=== PATIENT | male | born 1955 | race African-American/Black ===

== ENCOUNTER 2017-01-18 13:36 | Inpatient (IN) | payer OTHER ==
[2017-01-18 16:46] VITALS: BMI 21.4
--- NOTE | 2017-01-18 17:26 | HP ---
Admission ROS [facility] Chief Complaint: I need rehab to stop using heroin in order to continue OTP. Pt. denies cocaine use even though the UDS is + for cocaine. It was probably put in the heroin. Allergies/Adverse Reactions: Allergies Allergy/AdvReac Type Severity Reaction Status Date / Time Fish Containing Products Allergy Severe Hives Verified 01/18/17 16:42 History of Present Illness: 61 y/o man with a long hx. of cocaine dependence is admitted to rehab. Pt. is currently attending OTP and receives methadone 70mg daily. Exam Limitations: No Limitations - Ebola screening Have you traveled outside of the country in the last 21 days: No Have you had contact with anyone from an Ebola affected area: No Have you been sick,other than usual withdrawal symptoms: No Do you have a fever: No - Review of Systems Constitutional: No Symptoms Reported EENT: reports: No Symptoms Reported Respiratory: reports: No Symptoms reported Cardiac: reports: No Symptoms Reported GI: reports: No Symptoms Reported : reports: No Symptoms Reported Musculoskeletal: reports: No Symptoms Reported Integumentary: reports: No Symptoms Reported Neuro: reports: Seizure (last one in 2009) Endocrine: reports: No Symptoms Reported Hematology: reports: No Symptoms Reported Psychiatric: reports: No Sypmtoms Reported Other Systems: Reviewed and Negative Patient History - Patient Medical History Hx Anemia: No Hx Asthma: Yes (albuterol) Hx Chronic Obstructive Pulmonary Disease (COPD): No Hx Cancer: No Hx Cardiac Disorders: No Hx Congestive Heart Failure: No Hx Hypertension: No Hx Hypercholesterolemia: No Hx Pacemaker: No HX Cerebrovascular Accident: No Hx Seizures: Yes (last in 2009) Hx Dementia: No Hx Diabetes: No Hx Gastrointestinal Disorders: No Hx Liver Disease: No Hx Genitourinary Disorders: No Hx Sexually Transmitted Disorders: No Hx Renal Disease (ESRD): No Hx Thyroid Disease: No Hx Human Immunodeficiency Virus (HIV): No Hx Hepatitis C: No Hx Depression: Yes (no meds) Hx Suicide Attempt: No Hx Bipolar Disorder: Yes Hx Schizophrenia: No - Patient Surgical History Past Surgical History: No - PPD History Previous Implant?: Yes Documented Results: Negative w/o proof Implanted On Prior [facility] Admission?: No PPD to be Administered?: Yes - Smoking Cessation Smoking history: Current every day smoker Aproximately how many cigarettes per day: 2 Hx Chewing Tobacco Use: No Initiated information on smoking cessation: Yes 'Breaking Loose' booklet given: 01/18/17 - Substance & Tx. History Hx Alcohol Use: No Hx Substance Use: Yes Substance Use Type: Cocaine Hx Substance Use Treatment: Yes (OTP) - Substances Abused Heroin Route: Inhalation Frequency: Daily Age of first use: 18 Date of Last Use: 01/18/17 Family Disease History - Family Disease History Family Disease History: [place]: Brother, Other: Father (Alcohol & drug), Mother ( Alcohol & drug) Admission Physical Exam [facility] - Vital Signs Vital Signs: Vital Signs - 24 hr 01/18/17 16:42 Temperature 97.3 F L Pulse Rate 74 Respiratory 18 Rate Blood Pressure 102/63 - Physical General Appearance: Yes: Within Normal Limits HEENTM: Yes: Within Normal Limits Respiratory: Yes: Chest Non-Tender, Lungs Clear, Normal Breath Sounds Neck: Yes: Supple Breast: Yes: Breast Exam Deferred Cardiology: Yes: Regular Rhythm, Regular Rate, S1, S2 Abdominal: Yes: Normal Bowel Sounds, Non Tender, Flat, Soft Genitourinary: Yes: Within Normal Limits Back: Yes: Within Normal Limits Musculoskeletal: Yes: Within Normal Limits Extremities: Yes: Within Normal Limits Neurological: Yes: Fully Oriented, Alert Integumentary: Yes: Within Normal Limits Lymphatic: Yes: Within Normal Limits - Diagnostic (1) Uncomplicated opioid dependence Current Visit: Yes Status: Acute (2) Opioid dependence on agonist therapy Current Visit: Yes Status: Acute Cleared for Admission [facility] - Detox or Rehab Claeared for Rehab Admission: Yes [facility] Breath Alcohol Content Breath Alcohol Content: 0 Urine Drug Screen - Results Drug Screen Negative: No Urine Drug Screen Results: KELLY-Cocaine, OPI-Opiates, MTD-Methadone, TCA- Tricyclic Antidepress
[2017-01-18] MEDS ORDERED: MAGNESIUM CITRATE 300 ML BOTTLE PO PRN (17:38)
[2017-01-18] MEDS ORDERED: MAG HYDROX/AL HYDROX/SIMETH 30 ML UNIT-DOSE CUP PO PRN (17:38)
[2017-01-18] MEDS ORDERED: NICOTINE POLACRILEX 2 MG GUM BUC PRN (17:38)
[2017-01-18] MEDS ORDERED: LOPERAMIDE HCL 2 MG CAPSULE PO PRN (17:38)
[2017-01-18] MEDS ORDERED: IBUPROFEN 400 MG TABLET (FP) PO PRN (17:38)
[2017-01-18] MEDS ORDERED: guaiFENesin/D-METHORPHAN HB 10 ML UNIT-DOSE CUPS PO PRN (17:38)
[2017-01-18] MEDS ORDERED: P-EPHED 60MG/TRIPROLIDI 2.5MG TABLET PO PRN (17:38)
[2017-01-18] MEDS ORDERED: MAGNESIUM HYDROX 2400MG/30ML ORAL SUSPENSION 30 ML CUP PO PRN (17:38)
[2017-01-18] MEDS ORDERED: MENTHOL/PHENOL 1 EACH UD MM PRN (17:38)
[2017-01-18] MEDS ORDERED: ACETAMINOPHEN 325 MG TABLET (FP) PO PRN (17:38)
[2017-01-18] MEDS ORDERED: ALBUTEROL SO4 6.7 GM HFA INHALER IH PRN (17:40)
[2017-01-18] MEDS: THIAMINE HCL 100 MG TABLET (FP) PO SCH (21:23)
[2017-01-18] MEDS ORDERED: diphenhydrAMINE HCL 50 MG CAPSULE PO PRN (22:00)
[2017-01-18 23:27] LABS: URINE APPEARANCE CLEAR; URINE BILIRUBIN NEGATIVE (NEGATIVE); URINE BLOOD NEGATIVE (NEGATIVE); URINE COLOR YELLOW; URINE GLUCOSE (UA) NEGATIVE (NEGATIVE); URINE KETONE NEGATIVE (NEGATIVE); URINE LEUK ESTERASE NEGATIVE (NEGATIVE); URINE NITRITE NEGATIVE (NEGATIVE); URINE PROTEIN NEGATIVE (NEGATIVE); URINE UROBILINOGEN NEGATIVE mg/dL (0.2-1.0)
[2017-01-19] MEDS ORDERED: METHADONE HCL 10 MG TABLET PO ONE (09:05)
[2017-01-19] MEDS ORDERED: METHADONE 40 MG, METHADONE 30 MG PO ONE (09:13)
[2017-01-19] MEDS ORDERED: METHADONE HCL 10 MG TABLET ONE (09:17)
[2017-01-19] MEDS ORDERED: METHADONE HCL 40 MG DISPERSABLE TABLET ONE (09:17)
[2017-01-19] MEDS: PRENATAL VITAMINS W/ FOLIC ACID TABLET (FP) PO SCH (09:21)
[2017-01-19] MEDS ORDERED: hydrOXYzine PAMOATE 25 MG CAPSULE (FP) PO PRN (11:20)
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
--- NOTE | 2017-01-19 12:21 | EKG ---
Test Reason : Blood Pressure : / mmHG Vent. Rate : 066 BPM Atrial Rate : 066 BPM P-R Int : 148 ms QRS Dur : 076 ms QT Int : 414 ms P-R-T Axes : 066 061 050 degrees QTc Int : 434 ms NORMAL SINUS RHYTHM NORMAL ECG NO PREVIOUS ECGS AVAILABLE Confirmed by YANIRA NEFF, MYLENE ([id number]) on 01/19/2017 12:21:39 PM Referred By: Catrachito Lee Confirmed By:MYLENE DOYLE MD
[2017-01-19 13:48] LABS: MCH 28.9 pg (25.7-33.7); MCHC 32.6 g/dl (32.0-35.9); MEAN CELL VOLUME 88.6 fl (80-96); MEAN PLT VOLUME 7.6 fl (7.5-11.1); PLATELET COUNT 267 K/MM3 (134-434); RDW 15.4 % (11.9-15.9); WHITE BLOOD COUNT 5.5 K/mm3 (4.0-10.0)
[2017-01-19 14:00] LABS: ALBUMIN 3.5 g/dl (3.4-5.0); ANION GAP 7 (8-16); CALCIUM 8.8 mg/dL (8.5-10.1); CO2 31 mmol/L (21-32); CREATININE 0.9 mg/dL (0.7-1.3); GLUCOSE,RANDOM 74 mg/dL (74-106); SGOT/AST 15 U/L (15-37); SGPT/ALT 27 U/L (12-78)
[2017-01-19 14:02] LABS: ALK PHOS 66 U/L (45-117); BILIRUBIN,TOTAL 0.6 mg/dL (0.2-1.0); TOT PROT 6.6 g/dl (6.4-8.2)
[2017-01-19 14:52] LABS: SICKLE CELL SCREEN NEGATIVE (NEGATIVE)
[2017-01-19] MEDS: THIAMINE HCL 100 MG TABLET (FP) PO SCH (21:11)
[2017-01-19] MEDS: MIRTAZAPINE 15 MG TABLET (FP) PO SCH (21:11)
[2017-01-20] MEDS ORDERED: METHADONE HCL 10 MG TABLET PO SCH (06:00)
[2017-01-20] MEDS ORDERED: METHADONE HCL 10 MG TABLET ONE (06:24)
[2017-01-20] MEDS ORDERED: METHADONE HCL 40 MG DISPERSABLE TABLET ONE (06:24)
[2017-01-20] MEDS: METHADONE 40 MG, METHADONE 30 MG PO SCH (06:28)
[2017-01-20] MEDS: PRENATAL VITAMINS W/ FOLIC ACID TABLET (FP) PO SCH (09:40)
[2017-01-20] MEDS: MIRTAZAPINE 15 MG TABLET (FP) PO SCH (21:19)
[2017-01-20] MEDS: THIAMINE HCL 100 MG TABLET (FP) PO SCH (21:19)
[2017-01-20] MEDS ORDERED: cloNIDine HCL 0.1 MG TABLET PO PRN (21:35)
[2017-01-21] MEDS ORDERED: METHADONE HCL 40 MG DISPERSABLE TABLET ONE (03:12)
[2017-01-21] MEDS ORDERED: METHADONE HCL 10 MG TABLET ONE (03:12)
[2017-01-21] MEDS: METHADONE 40 MG, METHADONE 30 MG PO SCH (06:18)
[2017-01-21] MEDS: PRENATAL VITAMINS W/ FOLIC ACID TABLET (FP) PO SCH (09:58)
[2017-01-21] MEDS: THIAMINE HCL 100 MG TABLET (FP) PO SCH (21:37)
[2017-01-21] MEDS: TOLNAFTATE 1% CREAM 15 GM TUBE TP SCH (21:40)
[2017-01-21] MEDS: MIRTAZAPINE 15 MG TABLET (FP) PO SCH (21:41)
[2017-01-22] MEDS ORDERED: METHADONE HCL 40 MG DISPERSABLE TABLET ONE (05:08)
[2017-01-22] MEDS ORDERED: METHADONE HCL 10 MG TABLET ONE (05:08)
[2017-01-22] MEDS: METHADONE 40 MG, METHADONE 30 MG PO SCH (06:20)
[2017-01-22] MEDS: TOLNAFTATE 1% CREAM 15 GM TUBE TP SCH ×2 (09:56→21:35)
[2017-01-22] MEDS: PRENATAL VITAMINS W/ FOLIC ACID TABLET (FP) PO SCH (09:56)
[2017-01-22] MEDS: THIAMINE HCL 100 MG TABLET (FP) PO SCH (21:33)
[2017-01-22] MEDS: MIRTAZAPINE 15 MG TABLET (FP) PO SCH (21:33)
[2017-01-23] MEDS ORDERED: METHADONE HCL 10 MG TABLET ONE (03:04)
[2017-01-23] MEDS ORDERED: METHADONE HCL 40 MG DISPERSABLE TABLET ONE (03:04)
[2017-01-23] MEDS: METHADONE 40 MG, METHADONE 30 MG PO SCH (06:18)
[2017-01-23] MEDS: PRENATAL VITAMINS W/ FOLIC ACID TABLET (FP) PO SCH (10:02)
[2017-01-23] MEDS: TOLNAFTATE 1% CREAM 15 GM TUBE TP SCH ×2 (10:02→21:30)
[2017-01-23] MEDS: THIAMINE HCL 100 MG TABLET (FP) PO SCH (21:29)
[2017-01-23] MEDS: MIRTAZAPINE 15 MG TABLET (FP) PO SCH (21:29)
[2017-01-24] MEDS ORDERED: METHADONE HCL 40 MG DISPERSABLE TABLET ONE (03:40)
[2017-01-24] MEDS ORDERED: METHADONE HCL 10 MG TABLET ONE (03:40)
[2017-01-24] MEDS: METHADONE 40 MG, METHADONE 30 MG PO SCH (06:13)
[2017-01-24] MEDS: TOLNAFTATE 1% CREAM 15 GM TUBE TP SCH ×2 (10:02→21:27)
[2017-01-24] MEDS: PRENATAL VITAMINS W/ FOLIC ACID TABLET (FP) PO SCH (10:02)
--- NOTE | 2017-01-24 15:35 | PN ---
Psychiatric Progress Note Vital Signs: Vital Signs Period Temp Pulse Resp BP Sys/Ochoa Pulse Ox Last 24 Hr 97.6 F 57 18-18 114/72 Date of Session: 01/24/17 Chief Complaint:: Robel still having sleeping difficulties. HPI: Patient addressed Opioid dependence comorbid with Bipolar disorder. ROS: unremarkable Current Medications: Active Medications Generic Name Dose Route Start Last Admin Trade Name Freq PRN Reason Stop Dose Admin Acetaminophen 650 mg 01/18/17 17:38 Tylenol - PO Q4H PRN PAIN Al Hydroxide/Mg Hydroxide 30 ml 01/18/17 17:38 Mylanta Oral Suspension - PO Q6H PRN DYSPEPSIA Albuterol Sulfate 0 puff 01/18/17 17:40 Ventolin Hfa Inhaler - IH Q4H PRN SHORT OF BREATH/WHEEZING Clonidine 0.1 mg 01/20/17 21:35 Catapres - PO BID PRN HYPERTENSION Diphenhydramine HCl 50 mg 01/18/17 22:00 Benadryl - PO HSMR1 PRN INSOMNIA Eucalyptus/Menthol/Phenol/Sorbitol 1 each 01/18/17 17:38 Cepastat Lozenge - MM Q4H PRN SORE THROAT Guaifenesin 10 ml 01/18/17 17:38 Robitussin Dm - PO Q6H PRN COUGH Hydroxyzine Pamoate 25 mg 01/19/17 11:20 Vistaril - PO Q4H PRN ANXIETY Ibuprofen 400 mg 01/18/17 17:38 Motrin - PO Q6H PRN SEVERE PAIN Loperamide HCl 4 mg 01/18/17 17:38 Imodium - PO Q6H PRN DIARRHEA Magnesium Citrate 300 ml 01/18/17 17:38 Citroma - PO Q48H PRN CONSTIPATION Magnesium Hydroxide 30 ml 01/18/17 17:38 Milk Of Magnesia - PO DAILY PRN CONSTIPATION Methadone HCl 40 mg/ Methadone 70 mg 01/20/17 06:00 01/24/17 06:13 HCl 30 mg PO 01/26/17 05:59 70 mg DAILY@0600 IRWIN Administration Mirtazapine 30 mg 01/24/17 22:00 Remeron - PO HS IRWIN Nicotine Polacrilex 2 mg 01/18/17 17:38 Nicorette Gum - BUC Q2H PRN NICOTINE REPLACEMENT RX Multivit/Folic Acid/Iron 1 tab 01/19/17 10:00 01/24/17 10:02 Vitamins ([facility]) - PO 1 tab DAILY IRWIN Administration Pseudoephedrine/Triprolidine 1 combo 01/18/17 17:38 Actifed - PO TID PRN NASAL CONGESTION Thiamine HCl 100 mg 01/18/17 22:00 01/23/17 21:29 Vitamin B1 - PO 100 mg HS IRWIN Administration Tolnaftate 1 applic 01/21/17 22:00 01/24/17 10:02 Tinactin 1% Cream - TP 1 applic BID IRWIN Administration Current Side Effect: No Lab tests ordered: No Lab tests reviewed: Yes Provider note:: Chart was revuewed,patient was seen to address her sleeping difficulteis:inability to fall asleep,interrupted sleep pattern.treatment plan including medication management has been discussed with the patient.Properties of Remeron has been discussed as well including side effects and benefits , dose adjustment.Remeron 15 mg po hs will be adjusted to 30 mg po hs. Supportive therapy provided. Total face to face time:: 30 Mental Status Exam - Mental Status Exam Alert and Oriented to: Time, Place, Person Cognitive Function: Grossly Intact Mood: Anxious Affect: Labile Patient Behavior: Cooperative Speech Pattern: Clear Voice Loudness: Normal Thought Process: Goal Oriented Thought Disorder: Not Present Hallucinations: Denies Suicidal Ideation: Denies Homicidal Ideation: Denies Insight/Judgement: Fair Sleep: Difficulty falling asleep Appetite: Fair Muscle strength/Tone: Normal Gait/Station: Normal Psychiatric Treatment Plan - Problem List (1) Bipolar I disorder Current Visit: Yes (2) Opioid dependence on agonist therapy Current Visit: Yes
[2017-01-24] MEDS: THIAMINE HCL 100 MG TABLET (FP) PO SCH (21:25)
[2017-01-24] MEDS: MIRTAZAPINE 30 MG TABLET (FP) PO SCH (21:26)
[2017-01-25] MEDS ORDERED: METHADONE HCL 40 MG DISPERSABLE TABLET ONE (03:21)
[2017-01-25] MEDS ORDERED: METHADONE HCL 10 MG TABLET ONE (03:21)
[2017-01-25] MEDS: METHADONE 40 MG, METHADONE 30 MG PO SCH (06:08)
[2017-01-25] MEDS: TOLNAFTATE 1% CREAM 15 GM TUBE TP SCH ×2 (10:43→21:34)
[2017-01-25] MEDS: PRENATAL VITAMINS W/ FOLIC ACID TABLET (FP) PO SCH (10:43)
--- NOTE | 2017-01-25 12:13 | PN ---
[facility] Progress Note Note: pain in the right knee,no injury,playing sport in the past,r/o arthritis x ray of right knee,motrin 400 mgs po q 6hrs prn for pain
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
[2017-01-25] MEDS: THIAMINE HCL 100 MG TABLET (FP) PO SCH (21:34)
[2017-01-25] MEDS: GABAPENTIN 100 MG CAPSULE (FP) PO SCH (21:34)
[2017-01-25] MEDS: MIRTAZAPINE 30 MG TABLET (FP) PO SCH (21:34)
[2017-01-26] MEDS ORDERED: METHADONE HCL 10 MG TABLET ONE (04:08)
[2017-01-26] MEDS ORDERED: METHADONE HCL 40 MG DISPERSABLE TABLET ONE (04:08)
[2017-01-26] MEDS: METHADONE 40 MG, METHADONE 30 MG PO SCH (06:28)
[2017-01-26] MEDS: GABAPENTIN 100 MG CAPSULE (FP) PO SCH ×3 (06:28→21:05)
[2017-01-26] MEDS: TOLNAFTATE 1% CREAM 15 GM TUBE TP SCH ×2 (10:01→21:06)
[2017-01-26] MEDS: PRENATAL VITAMINS W/ FOLIC ACID TABLET (FP) PO SCH (10:01)
[2017-01-26] MEDS: THIAMINE HCL 100 MG TABLET (FP) PO SCH (21:05)
[2017-01-26] MEDS: MIRTAZAPINE 30 MG TABLET (FP) PO SCH (21:05)
[2017-01-27] MEDS ORDERED: METHADONE HCL 40 MG DISPERSABLE TABLET ONE (05:06)
[2017-01-27] MEDS ORDERED: METHADONE HCL 10 MG TABLET ONE (05:06)
[2017-01-27] MEDS: GABAPENTIN 100 MG CAPSULE (FP) PO SCH ×3 (06:00→21:11)
[2017-01-27] MEDS: METHADONE 40 MG, METHADONE 30 MG PO SCH (06:00)
[2017-01-27] MEDS: PRENATAL VITAMINS W/ FOLIC ACID TABLET (FP) PO SCH (10:05)
[2017-01-27] MEDS: TOLNAFTATE 1% CREAM 15 GM TUBE TP SCH ×2 (10:05→21:14)
[2017-01-27] MEDS: THIAMINE HCL 100 MG TABLET (FP) PO SCH (21:11)
[2017-01-27] MEDS: MIRTAZAPINE 30 MG TABLET (FP) PO SCH (21:11)
[2017-01-28] MEDS ORDERED: METHADONE HCL 10 MG TABLET ONE (04:14)
[2017-01-28] MEDS ORDERED: METHADONE HCL 40 MG DISPERSABLE TABLET ONE (04:14)
[2017-01-28] MEDS: METHADONE 40 MG, METHADONE 30 MG PO SCH (05:55)
[2017-01-28] MEDS: GABAPENTIN 100 MG CAPSULE (FP) PO SCH ×3 (05:55→21:09)
[2017-01-28] MEDS: PRENATAL VITAMINS W/ FOLIC ACID TABLET (FP) PO SCH (09:45)
[2017-01-28] MEDS: TOLNAFTATE 1% CREAM 15 GM TUBE TP SCH ×2 (09:46→21:10)
[2017-01-28] MEDS: THIAMINE HCL 100 MG TABLET (FP) PO SCH (21:09)
[2017-01-28] MEDS: MIRTAZAPINE 30 MG TABLET (FP) PO SCH (21:09)
[2017-01-29] MEDS ORDERED: METHADONE HCL 40 MG DISPERSABLE TABLET ONE (03:27)
[2017-01-29] MEDS ORDERED: METHADONE HCL 10 MG TABLET ONE (03:27)
[2017-01-29] MEDS: METHADONE 40 MG, METHADONE 30 MG PO SCH (06:39)
[2017-01-29] MEDS: GABAPENTIN 100 MG CAPSULE (FP) PO SCH ×3 (06:39→21:35)
[2017-01-29] MEDS: TOLNAFTATE 1% CREAM 15 GM TUBE TP SCH ×2 (10:03→21:35)
[2017-01-29] MEDS: PRENATAL VITAMINS W/ FOLIC ACID TABLET (FP) PO SCH (10:03)
[2017-01-29] MEDS: THIAMINE HCL 100 MG TABLET (FP) PO SCH (21:34)
[2017-01-29] MEDS: MIRTAZAPINE 30 MG TABLET (FP) PO SCH (21:35)
[2017-01-30] MEDS ORDERED: METHADONE HCL 10 MG TABLET ONE (05:18)
[2017-01-30] MEDS ORDERED: METHADONE HCL 40 MG DISPERSABLE TABLET ONE (05:18)
[2017-01-30] MEDS: METHADONE 40 MG, METHADONE 30 MG PO SCH (05:58)
[2017-01-30] MEDS: GABAPENTIN 100 MG CAPSULE (FP) PO SCH ×3 (05:59→21:24)
[2017-01-30] MEDS: PRENATAL VITAMINS W/ FOLIC ACID TABLET (FP) PO SCH (10:25)
[2017-01-30] MEDS: TOLNAFTATE 1% CREAM 15 GM TUBE TP SCH ×2 (10:26→21:25)
[2017-01-30] MEDS: MIRTAZAPINE 30 MG TABLET (FP) PO SCH (21:24)
[2017-01-30] MEDS: THIAMINE HCL 100 MG TABLET (FP) PO SCH (21:24)
[2017-01-31] MEDS ORDERED: METHADONE HCL 10 MG TABLET ONE (03:20)
[2017-01-31] MEDS ORDERED: METHADONE HCL 40 MG DISPERSABLE TABLET ONE (03:20)
[2017-01-31] MEDS: METHADONE 40 MG, METHADONE 30 MG PO SCH (06:03)
[2017-01-31] MEDS: GABAPENTIN 100 MG CAPSULE (FP) PO SCH (06:04)
[2017-01-31 07:23] VITALS: BP 113/69; PULSE 65; TEMP 98
[2017-01-31] MEDS: TOLNAFTATE 1% CREAM 15 GM TUBE TP SCH (09:47)
[2017-01-31] MEDS: PRENATAL VITAMINS W/ FOLIC ACID TABLET (FP) PO SCH (09:47)
--- NOTE | 2017-01-31 11:37 | PN ---
Psychiatric Progress Note Vital Signs: Vital Signs Period Temp Pulse Resp BP Sys/Ochoa Pulse Ox Last 24 Hr 98.0 F 65 16-18 113/69 Date of Session: 01/31/17 Chief Complaint:: discharge visit HPI: Patient is addressing opioid dependence comorbid Bipolar I disorder. ROS: Asthma medically managed Current Side Effect: No Lab tests ordered: No Lab tests reviewed: Yes Provider note:: Patient has completed today his treatment and met his goals, will continue to address [facility]. He understands the negative impact of his addiction on his major life areas including physical and mental health, he verbalized his resolution to stay sober and follow his aftercare plans. Medications well tolerated, scripts provided, patient was encouraged to take medications as directed and continue maintain abstinence, patient is stabel for discharge today. Total face to face time:: 30 Mental Status Exam - Mental Status Exam Alert and Oriented to: Time, Place, Person Cognitive Function: Good Patient Appearance: Well Groomed Mood: Hopeful Affect: Appropriate, Mood Congruent Patient Behavior: Appropriate, Cooperative Speech Pattern: Clear, Appropriate Voice Loudness: Normal Thought Process: Goal Oriented Thought Disorder: Not Present Hallucinations: Denies Suicidal Ideation: Denies Homicidal Ideation: Denies Insight/Judgement: Fair Sleep: Fair Appetite: Good Muscle strength/Tone: Normal Gait/Station: Normal
== END 2017-01-31 10:30 | disposition home or self-care (01) | DRG 895 ==
LOC: YASAS 13:36 → Y5N 17:51
PROVIDERS: ADMIT Psychiatry & Neurology Psychiatry; ATTEND Psychiatry & Neurology Psychiatry
PROC: HZ42ZZZ Group Counseling for Substance Abuse Treatment, Cognitive-Behavioral (ICD-10-PCS; principal; 2017-01-21)
DX: F11.20 Opioid dependence, uncomplicated (principal); F31.89 Other bipolar disorder; F17.210 Nicotine dependence, cigarettes, uncomplicated; J45.909 Unspecified asthma, uncomplicated; M25.561 Pain in right knee; Z86.69 Personal history of other diseases of the nervous system and sense organs
CPT/HCPCS: 36415; 73560-TC-RT; 80053; 81003; 85027; 85660; 86593; 93005; 93010